=== PATIENT | male | born 1955 | race Caucasian/White ===

== ENCOUNTER 2018-11-06 11:00 | Day surgery (SDC) | payer MEDICARE, OTHER ==
[~2018-11-06] VITALS: Ht 185.4 cm; Wt 140.6 kg
[2018-11-06] MEDS ORDERED: MULTI VIT PO (12:01)
[2018-11-06] MEDS ORDERED: VITAMIN D31000 UNI1 PO (12:01)
[2018-11-06] MEDS ORDERED: FUROSEMIDE40 MG PO (12:01)
[2018-11-06] MEDS ORDERED: PRAVASTATIN SOD20 MG PO (12:01)
[2018-11-06] MEDS ORDERED: ASPIRIN EC325 MG PO (12:02)
[2018-11-06] MEDS ORDERED: LEVOTHYROXIN100 MCG PO (12:02)
[2018-11-06] MEDS ORDERED: HYDRALAZINE25 MG PO (12:02)
[2018-11-06] MEDS ORDERED: RENVELA800 MG PO (12:03)
[2018-11-06] MEDS ORDERED: TOPROL XL50 MG PO (12:03)
[2018-11-06] MEDS ORDERED: AMLODIPINE5 MG PO (12:03)
[2018-11-06] MEDS ORDERED: HUMULIN R500 UNIT/1 SC (12:04)
[2018-11-06 12:07] LABS: HEMATOCRIT 36.8 % (39.0-50.0); HEMOGLOBIN 11.4 g/dl (14.0-18.0); IMMATURE GRANULOCYTES 0.4 % (0.0-5.0); MEAN CELL VOLUME 94.1 fL CALC (80.0-100.0); MEAN CORPUSCULAR HGB 29.2 pG CALC (26.0-32.0); NEUT# 4.34 thou/uL (1.82-7.42); RED BLOOD COUNT 3.91 mill/uL (4.70-6.10); RED CELL DISTRI WIDTH 16.5 % (11.5-15.5)
[2018-11-06 12:26] LABS: ALBUMIN 4.2 g/dL (3.2-5.0); BILIRUBIN, TOTAL 0.5 mg/dL (0.0-1.4); TOTAL PROTEIN 7.1 g/dL (6.3-8.2)
[2018-11-06 12:34] LABS: PROTHROMBIN TIME 10.4 SECONDS (9.0-12.5)
[2018-11-06 12:40] LABS: CREATININE 6.5 mg/dL (0.7-1.3); POTASSIUM 5.5 mmol/l (3.5-5.1)
[2018-11-06 18:35] VITALS: BP 120/66
== END 2018-11-06 18:05 | disposition home or self-care (01) ==
LOC: ORM 11:00
PROVIDERS: ATTEND Surgery Vascular Surgery
PROC: 05SF0ZZ Reposition Left Cephalic Vein, Open Approach (ICD-10-PCS; principal; 2018-11-06)
DX: I12.0 Hypertensive chronic kidney disease with stage 5 chronic kidney disease or end stage renal disease (principal); E11.22 Type 2 diabetes mellitus with diabetic chronic kidney disease; N18.6 End stage renal disease; Z99.2 Dependence on renal dialysis; E03.9 Hypothyroidism, unspecified; F17.200 Nicotine dependence, unspecified, uncomplicated
CPT/HCPCS: J2997; Q9967

== ENCOUNTER 2019-02-26 10:38 | Day surgery (SDC) | payer MEDICARE, OTHER ==
[~2019-02-26 10:38] MED LIST: AMLODIPINE5 MG PO; ASPIRIN EC325 MG PO; FUROSEMIDE40 MG PO; HUMULIN R500 UNIT/1 SC; HYDRALAZINE25 MG PO; LEVOTHYROXIN100 MCG PO; MULTI VIT PO; PRAVASTATIN SOD20 MG PO; RENVELA800 MG PO; TOPROL XL50 MG PO; VITAMIN D31000 UNI1 PO
[2019-02-26 11:40] LABS: HEMATOCRIT 38.8 % (39.0-50.0); HEMOGLOBIN 12.8 g/dl (14.0-18.0); IMMATURE GRANULOCYTES 0.2 % (0.0-5.0); MEAN CELL VOLUME 96.5 fL CALC (80.0-100.0); MEAN CORPUSCULAR HGB 31.8 pG CALC (26.0-32.0); NEUT# 5.09 thou/uL (1.82-7.42); RED BLOOD COUNT 4.02 mill/uL (4.70-6.10); RED CELL DISTRI WIDTH 13.9 % (11.5-15.5)
[2019-02-26 11:46] LABS: POTASSIUM 4.8 mmol/l (3.5-5.1)
[2019-02-26 11:53] LABS: ACT PARTIAL THROMBO TIME 25.5 SECONDS (20.0-32.5); PROTHROMBIN TIME 10.1 SECONDS (9.0-12.5)
[2019-02-26 12:05] LABS: CREATININE 6.1 mg/dL (0.7-1.3)
[2019-02-26] MEDS ORDERED: NORCO1 TA1 PO (17:02)
[2019-02-26 17:45] VITALS: BP 113/60
== END 2019-02-26 17:40 | disposition home or self-care (01) ==
LOC: ORM 10:38
PROVIDERS: ATTEND Surgery Vascular Surgery
PROC: 03180JF Bypass Left Brachial Artery to Lower Arm Vein with Synthetic Substitute, Open Approach (ICD-10-PCS; principal; 2019-02-26)
DX: T82.590A Other mechanical complication of surgically created arteriovenous fistula, initial encounter (principal); I12.0 Hypertensive chronic kidney disease with stage 5 chronic kidney disease or end stage renal disease; E11.22 Type 2 diabetes mellitus with diabetic chronic kidney disease; N18.6 End stage renal disease; Y83.2 Surgical operation with anastomosis, bypass or graft as the cause of abnormal reaction of the patient, or of later complication, without mention of misadventure at the time of the procedure; Z99.2 Dependence on renal dialysis
CPT/HCPCS: C1768; J0131; J1100